=== PATIENT | female | born 1945 | race Caucasian/White ===

== ENCOUNTER → 2016-11-29 | Outpatient (CLI) | payer BC, MEDICARE ==
[~2016-11-29] MED LIST: ACET-2321 PO; ALBU6.7H INH; CETI1TAB14 PO; DABI150C PO; DILT360C38 PO; FLEC50TA2 PO; FURO20TA4 PO; GUAI1TBM15 PO; IBUP200C62 PO; IPRA3AMP11 IH; PRED20TA PO
--- NOTE | 2016-11-30 12:17 | DI ---
Indication: ITS.REASON: M25.562, pain in left knee for three months along lateral aspect PROCEDURE: MRI KNEE LEFT W/O CONTRAST: Encounter: Initial Comparison: None Technique: Multiplanar multisequence MR imaging of the left knee was performed without contrast. Findings: Review of bony structures show marked joint space narrowing involving the lateral compartment with hypertrophic spurring but no significant subchondral cystic change of the condyles. Mild subchondral cyst and periarticular edema of the lateral plateau peripherally. Patella shows slight lateral rotation but no evidence of significant chondromalacia. The ACL and PCL are intact. Quadriceps and patellar tendons are intact. The medial collateral ligament is intact. Lateral collateral ligament shows partial strain or stranding. The lateral meniscus shows peripheral displacement of body due to joint space narrowing with marked attenuation and deformity of the anterior body indicating chronic tear. Posterior horn is intact. The medial meniscus shows an oblique more acute appearing tear obliquely through the lateral inferior mid body and posterior horn. A large joint effusion is seen superiorly in suprasellar bursa. A small complicated popliteal cyst is seen medial to midline. Impression 1. Osteoarthritic changes most pronounced involving the lateral compartment with joint space narrowing and hypertrophic spurring. Mild subchondral sclerotic and edematous cystic change to the very lateral peripheral plateau. 2. Resulting peripheral displacement and chronic appearing tear and deformity of mid body and anterior horn of lateral meniscus. 3. More acute appearing linear well-defined oblique tear of the medial meniscus at mid body and posterior horn. 4. Large joint effusion containing supra patella bursa. 5. Small complicated popliteal cyst. .
== END ==
LOC: IMA 16:33
PROVIDERS: ATTEND Family Medicine
DX: S83.242A Other tear of medial meniscus, current injury, left knee, initial encounter (principal); X58.XXXA Exposure to other specified factors, initial encounter; Y93.9 Activity, unspecified; Y92.9 Unspecified place or not applicable; M85.88 Other specified disorders of bone density and structure, other site; Y99.9 Unspecified external cause status; M17.12 Unilateral primary osteoarthritis, left knee; M25.462 Effusion, left knee; M71.22 Synovial cyst of popliteal space [Baker], left knee; M25.562 Pain in left knee